=== PATIENT | male | born 1975 | race Caucasian/White ===

== ENCOUNTER 2017-05-20 17:44 | Emergency (ER) | payer BC, OTHER ==
[2017-05-20 17:51] VITALS: BP 140/90; PULSE 71; TEMP 98; BMI 29.6
[2017-05-20] MEDS ORDERED: CYCLOBENZAPRINE HCL 10 MG TABLET (FP) PO ONE (18:19)
[2017-05-20] MEDS ORDERED: KETOROLAC TROMETHAMINE 60 MG/2 ML VIAL IM ONE (18:19)
[2017-05-20] MEDS ORDERED: KETOROLAC TROMETHAMINE 60 MG/2 ML VIAL ONE (18:21)
[2017-05-20] MEDS ORDERED: CYCLOBENZAPRINE HCL 10 MG TABLET (FP) ONE (18:21)
--- NOTE | 2017-05-20 18:22 | PDOC ---
History of Present Illness - General Chief Complaint: Back Pain Stated Complaint: BACK PAIN Time Seen by Provider: 05/20/17 18:02 History Source: Patient Exam Limitations: No Limitations (41y/o M with chronic back pain X 20yrs, p/w flare X 3 days) Past History - Travel Close contact w/someone who was outside of country & ill: No - Past Medical History Allergies/Adverse Reactions: Allergies Allergy/AdvReac Type Severity Reaction Status Date / Time apple AdvReac Mild Itching Verified 05/20/17 17:49 shrimp AdvReac Mild Itching Uncoded 05/20/17 17:49 Home Medications: Ambulatory Orders No Home Medications 0 dose .ROUTE UTDICT 10/16/11 Cyclobenzaprine HCl [Flexeril 10 mg] 10 mg PO BID #20 tablet 05/20/17 Ibuprofen 800 mg PO ACDIN #21 tablet 05/20/17 COPD: No - Suicide/Smoking/Psychosocial Hx Smoking Status: No Smoking History: Never smoked Have you smoked in the past 12 months: No Number of Cigarettes Smoked Daily: 0 Information on smoking cessation initiated: No Hx Alcohol Use: No Drug/Substance Use Hx: No Substance Use Type: None Review of Systems - Review of Systems Is the patient limited Turkish proficient: No Constitutional: No: Chills, Fever Cardiac (ROS): No: Chest Pain : No: Burning, Dysuria, Frequency, Hematuria, Urgency Musculoskeletal: Yes: Back Pain. No: Joint Pain, Joint Swelling, Muscle Pain, Muscle Weakness, Neck Pain Neurological: No: Numbness, Paresthesia, Weakness *Physical Exam - Vital Signs Last Vital Signs Temp Pulse Resp BP Pulse Ox 98 F 71 16 140/90 100 05/20/17 17:49 05/20/17 17:49 05/20/17 17:49 05/20/17 17:49 05/20/17 17:49 - Physical Exam General Appearance: Yes: Nourished Respiratory/Chest: positive: Lungs Clear, Normal Breath Sounds Cardiovascular: positive: Regular Rhythm, Regular Rate, S1, S2 Musculoskeletal: positive: Muscle Spasm, Other (+ paraspinal tenderness noted in LS spine, + SLE on the right) Neurologic: positive: Fully Oriented, Alert, Normal Mood/Affect, Motor Strength 5/5 Medical Decision Making - Medical Decision Making 05/20/17 18:25 41-year-old male with chronic back pain for 20 years, p/w LBP after training at work 3 days ago. Pt denies new trauma, b/b incontience, UTI sx or saddle anethesia. Pt is radiating to R lower leg. Pt has no had a recent imaging for back, states his back flares up at lead 2x/yr, Plan: exam consistent with paraspinal tenderness in LS spine, + Right SLR otherwise non focal neuro exam toradol/flexeril for pain f/u with PCP for MRI imaging 05/20/17 18:54 Patient reassesed after Toradol and Flexeril patient feels much be. Patient recommended to follow primate care doctor for further evaluation of back pain. *DC/Admit/Observation/Transfer Diagnosis at time of Disposition: Back pain Qualifiers: Back pain location: low back pain Chronicity: chronic Back pain laterality: right Sciatica presence: with sciatica Sciatica laterality: sciatica of right side Qualified Code(s): M54.41 - Lumbago with sciatica, right side - Discharge Dispostion Disposition: HOME Condition at time of disposition: Stable Admit: No - Prescriptions Prescriptions: Cyclobenzaprine HCl [Flexeril 10 mg] 10 mg PO BID #20 tablet Ibuprofen 800 mg PO ACDIN #21 tablet - Referrals Referrals: Norma Aguayo MD [Primary Care Provider] - - Patient Instructions Printed Discharge Instructions: DI for Low Back Pain Additional Instructions: I discussed the physical exam findings, ancillary test results and final diagnoses with the patient. I answered all of the patient's questions. The patient was satisfied with the care received and felt comfortable with the discharge plan and treatment plan. The patient will call their primary care physician within 24 hours to arrange follow-up and will return to the Emergency Department with any new, persistant or worsening symptoms. - Post Discharge Activity Forms/Work/School Notes: Back to Work
== END 2017-05-20 19:02 | disposition home or self-care (01) ==
LOC: JERFT 17:44
PROC: 3E0233Z Introduction of Anti-inflammatory into Muscle, Percutaneous Approach (ICD-10-PCS; principal; 2017-05-20)
DX: M54.41 Lumbago with sciatica, right side (principal)
CPT/HCPCS: 99281-25

== ENCOUNTER 2018-02-09 19:48 | Emergency (ER) | payer BC, OTHER ==
[2018-02-09] MEDS ORDERED: DIPHTH,PERTUSS(ACELL),TET 0.5 ML DISP.SYRIN IM ONE ×2 (20:12→20:19)
--- NOTE | 2018-02-09 20:12 | PDOC ---
History of Present Illness - General Stated Complaint: FALL Time Seen by Provider: 02/09/18 20:11 History Source: Patient Exam Limitations: No Limitations Past History - Past Medical History Allergies/Adverse Reactions: Allergies Allergy/AdvReac Type Severity Reaction Status Date / Time apple AdvReac Mild Itching Verified 05/20/17 17:49 shrimp AdvReac Mild Itching Uncoded 05/20/17 17:49 Home Medications: Ambulatory Orders No Home Medications 0 dose .ROUTE UTDICT 10/16/11 Cyclobenzaprine HCl [Flexeril 10 mg] 10 mg PO BID #20 tablet 05/20/17 Ibuprofen 800 mg PO ACDIN #21 tablet 05/20/17 COPD: No - Suicide/Smoking/Psychosocial Hx Smoking Status: No Smoking History: Never smoked Have you smoked in the past 12 months: No Number of Cigarettes Smoked Daily: 0 Hx Alcohol Use: No Drug/Substance Use Hx: No Substance Use Type: None
[2018-02-09 20:15] VITALS: BP 142/91; PULSE 88; TEMP 98.2; BMI 30.4
--- NOTE | 2018-02-09 21:00 | PDOC ---
History of Present Illness - General Chief Complaint: Injury Stated Complaint: FALL Time Seen by Provider: 02/09/18 20:11 History Source: Patient Exam Limitations: No Limitations - History of Present Illness Initial Comments: 02/09/18 20:57 HISTORY OF PRESENT ILLNESS: 42-year-old male denies past medical history presents emergency department for evaluation of injury to the plantar surface of his toe status post slip off of the metal step stool. Patient was having initial in his bathroom while standing on a step stool. Wasn't wearing shoes and slipped off the step catching his foot on the sharp metal step going to the floor. Patient with known is patent was expressing no pain with his saw that he was bleeding from his foot. 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 Patient reports he is unsure of his last tetanus shot. No recent travel or sick contacts. PAST MEDICAL HISTORY: Denies past medical history SURGICAL HISTORY: Denies ALLERGIES: No known drug allergies REVIEW OF SYSTEMS General/Constitutional: Denies fever or chills. Denies weakness, weight change. HEENT: Denies change in vision. Denies ear pain or discharge. Denies sore throat. Cardiovascular: Denies chest pain or shortness of breath. Respiratory: Denies cough, wheezing, or hemoptysis. Gastrointestinal: Denies nausea, vomiting, diarrhea or constipation. Denies rectal bleeding. Genitourinary: Denies dysuria, frequency, or change in urination. Musculoskeletal: Denies joint or muscle swelling or pain. Denies neck or back pain. Skin and breasts: skin tear to bottom of right great toe. Neurologic: Denies headache, vertigo, loss of consciousness, or loss of sensation. Psychiatric: Denies depression or anxiety. Endocrine: Denies increased thirst. Denies abnormal weight change. Hematologic/Lymphatic: Denies anemia, easy bleeding, or history of blood clots. Allergic/Immunologic: Denies hives or skin allergy. Denies latex allergy. PHYSICAL EXAM General Appearance: Well-appearing, appropriately dressed. No apparent distress , no intoxication. Musculoskeletal/Extremities: Normal inspection. FROM of all extremities against resistance, normal capillary refill. Pelvis Stable. No CVA tenderness. No tenderness to extremities, pedal edema, swelling, erythema or deformity. Integumentary: 1.5 cm x 3 cm degloving of the skin at the base of the right great toe plantar surface. Bleeding is well-controlled. Neurologic: salvage worker II-XII intact. Fully oriented, alert. Appropriate mood/affect. Motor strength 5/5. No appreciable EOM palsy, facial droop or sensory deficit. Past History - Past Medical History Allergies/Adverse Reactions: Allergies Allergy/AdvReac Type Severity Reaction Status Date / Time apple AdvReac Mild Itching Verified 02/09/18 20:15 shrimp AdvReac Mild Itching Uncoded 02/09/18 20:15 Home Medications: Ambulatory Orders No Home Medications 0 dose .ROUTE UTDICT 10/16/11 COPD: No - Suicide/Smoking/Psychosocial Hx Smoking Status: No Smoking History: Never smoked Have you smoked in the past 12 months: No Number of Cigarettes Smoked Daily: 0 Information on smoking cessation initiated: No Hx Alcohol Use: No Drug/Substance Use Hx: No Substance Use Type: None *Physical Exam - Vital Signs Last Vital Signs Temp Pulse Resp BP Pulse Ox 98.2 F 88 16 142/91 97 02/09/18 20:12 02/09/18 20:12 02/09/18 20:12 02/09/18 20:12 02/09/18 20:12 Moderate Sedation - Procedure Monitoring Vital Signs: Procedure Monitoring Vital Signs Temperature 98.2 F 02/09/18 20:12 Pulse Rate 88 02/09/18 20:12 Respiratory Rate 16 02/09/18 20:12 Blood Pressure 142/91 02/09/18 20:12 O2 Sat by Pulse Oximetry (%) 97 02/09/18 20:12 ED Treatment Course - Medications Given in the ED: ED Medications Discontinued Medications Generic Name Dose Route Start Last Admin Trade Name Freq PRN Reason Stop Dose Admin Diphtheria/Tetanus/Acell Pertussis 0.5 ml 02/09/18 20:12 02/09/18 20:23 Boostrix - IM 02/09/18 20:13 0.5 ml .ONCE ONE Administration Medical Decision Making - Medical Decision Making 02/09/18 21:10 A/P: 42-year-old male with skin tear to plantar surface of the right great toe 1.5 x 3 cm skin tear present to the plantar surface of the base of the right great toe Excess skin excised Bacitracin placed Tri[facility] dressing placed Discharge home *DC/Admit/Observation/Transfer Diagnosis at time of Disposition: Tear of skin of plantar aspect of right foot Qualifiers: Encounter type: initial encounter Qualified Code(s): S91.311A - Laceration without foreign body, right foot, initial encounter - Discharge Dispostion Disposition: HOME Condition at time of disposition: Stable Decision to Admit order: No - Referrals Referrals: Norma Aguayo MD [Primary Care Provider] - - Patient Instructions Additional Instructions: Wash wound 3 times a day Apply antibiotic ointment to wound 3 times a day Apply a nonadhesive sterile dressing to affected area after bacitracin is applied. Avoid walking on foot to promote wound healing. Tetanus has been updated today. Return to emergency department for fevers, chills, discharge or drainage from the wound, redness around the wounds, red streaks extending up her leg or foot from the wound or any other concerns. Thank you very much for choosing us to provide your emergent health care needs. - Post Discharge Activity Forms/Work/School Notes: Back to Work
== END 2018-02-09 21:25 | disposition home or self-care (01) ==
LOC: JERFT 19:48
PROC: 3E0234Z Introduction of Serum, Toxoid and Vaccine into Muscle, Percutaneous Approach (ICD-10-PCS; principal; 2018-02-09)
DX: S91.111A Laceration without foreign body of right great toe without damage to nail, initial encounter (principal); W11.XXXA Fall on and from ladder, initial encounter; Y93.89 Activity, other specified; Y92.038 Other place in apartment as the place of occurrence of the external cause; Y99.8 Other external cause status
CPT/HCPCS: 90715; 99281-25

== ENCOUNTER 2018-06-20 10:55 | Emergency (ER) | payer BC, OTHER ==
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
[2018-06-20 11:25] VITALS: TEMP 97.7; BMI 30.2
[2018-06-20] MEDS ORDERED: morphine CARPU-JECT 4 MG/1 ML DISP.SYRIN IM ONE (11:49)
[2018-06-20] MEDS ORDERED: morphine SULFATE 4 MG/ML VIAL ONE (11:53)
[2018-06-20 13:54] VITALS: BP 111/66; PULSE 73
[2018-06-20] MEDS ORDERED: KETOROLAC TROMETHAMINE 30 MG/1 ML VIAL ONE (14:04)
[2018-06-20] MEDS ORDERED: KETOROLAC TROMETHAMINE 15 MG/ML VIAL IM ONE (14:04)
== END 2018-06-20 16:18 | disposition home or self-care (01) ==
LOC: FER 10:55
PROC: 3E023NZ Introduction of Analgesics, Hypnotics, Sedatives into Muscle, Percutaneous Approach (ICD-10-PCS; principal; 2018-06-20)
DX: S22.49XA Multiple fractures of ribs, unspecified side, initial encounter for closed fracture (principal); V18.0XXA Pedal cycle driver injured in noncollision transport accident in nontraffic accident, initial encounter; Y93.9 Activity, unspecified; Y92.89 Other specified places as the place of occurrence of the external cause
CPT/HCPCS: 71045-TC-FY; 71250-TC; 73060-TC-LT-FY; 73070-TC-LT-FY; 99282-25

== ENCOUNTER 2022-01-29 16:33 | Emergency (ER) | payer BC, OTHER ==
[2022-01-29 16:42] VITALS: BP 145/86; PULSE 84; RESP 18; TEMP 98.7; BMI 27.3
[2022-01-29] MEDS ORDERED: ACETAMINOPHEN 325 MG TABLET (FP) PO ONE (18:00)
== END 2022-01-29 18:25 | disposition home or self-care (01) ==
LOC: JER 16:33
DX: J09.X2 Influenza due to identified novel influenza A virus with other respiratory manifestations (principal); R05.1 Acute cough; R09.81 Nasal congestion
CPT/HCPCS: 0241U-QW; 99283-25

== ENCOUNTER 2023-11-12 18:57 | Emergency (ER) | payer BC, OTHER ==
[2023-11-12 19:04] VITALS: BP 146/88; PULSE 82; RESP 16; TEMP 97.8; BMI 28.8
[2023-11-12] MEDS ORDERED: KETOROLAC TROMETHAMINE 30 MG/1 ML VIAL ONE (19:41)
[2023-11-12] MEDS ORDERED: ACETAMINOPHEN 500 MG TABLET (FP) ONE (19:42)
[2023-11-12] MEDS: KETOROLAC TROMETHAMINE 30 MG/1 ML VIAL IM ONE (19:50)
[2023-11-12] MEDS: ACETAMINOPHEN 500 MG TABLET (FP) PO ONE (19:51)
== END 2023-11-12 21:49 | disposition home or self-care (01) ==
LOC: JER 18:57 → JERFT 18:57
PROC: 3E0133Z Introduction of Anti-inflammatory into Subcutaneous Tissue, Percutaneous Approach (ICD-10-PCS; principal; 2023-11-12)
DX: M54.6 Pain in thoracic spine (principal); M25.511 Pain in right shoulder
CPT/HCPCS: 72070-TC-FY; 99284-25